=== PATIENT | male | born 1985 | race Caucasian/White ===

== ENCOUNTER 2016-12-01 22:42 | Emergency (ER) | payer SELFPAY ==
[2016-12-02 02:00] LABS: BASOPHIL# 0.1 X10e3 (0-0.3); EOSINOPHIL# 0.1 X10e3 (0-0.7); EOSINOPHIL% 2.3 % (0.0-7.0); HEMATOCRIT 45.5 % (38.0-50.0); HEMOGLOBIN 15.4 gm/dL (13.0-16.0); LYMPHOCYTE# 2.1 X10e3 (1.0-3.5); LYMPHOCYTE% 40.3 % (17.0-45.0); MEAN CELL VOLUME 92.7 FL (83-96); MEAN CORPUSCULAR HEMOGLOBIN 31.3 PG (28-34); MEAN CORPUSCULAR HGB CONC 33.8 g/dL (30-36); MEAN PLATELET VOLUME 7.7 FL (6.5-11.5); MONOCYTE# 0.9 X10e3 (0-1.0); MONOCYTE% 17.6 % (3.0-12.0); NEUTROPHIL% 38.8 % (40-75); PLATELET COUNT 138 X10e3 (140-420); RED BLOOD COUNT 4.91 X10e (3.90-5.60); RED CELL DISTRIBUTION WIDTH 13.2 % (11.0-15.5); WHITE BLOOD COUNT 5.3 X10e3 (4.0-10.5)
[2016-12-02 02:02] LABS: DIFF IND NO
[2016-12-02 02:05] LABS: AMPHETAMINE NEG (NEG); BARBITURATES NEG (NEG); BENZODIAZEPINES POS (NEG); COCAINE NEG (NEG); MARIJUANA NEG (NEG); OPIATES NEG (NEG); TRICYCLIC ANTIDEPRESSANTS NEG (NEG); U METHADONE NEG (NEG)
[2016-12-02 02:10] LABS: BUN/CREATININE RATIO 11.25; CALCIUM SERUM 8.9 mg/dL (8.4-10.2); CREATININE SERUM 0.8 mg/dL (0.6-1.4); GLOM FILT RATE Estimated 118.2 mL/min (>60); POTASSIUM 3.4 mmol/L (3.5-5.1)
== END 2016-12-02 05:30 | disposition home or self-care (01) ==
LOC: CED 22:42
PROVIDERS: Emergency Medicine
DX: F10.129 Alcohol abuse with intoxication, unspecified (principal)
CPT/HCPCS: 36415; 80048; 80307; 85025; 96360; 99284; G0480

== ENCOUNTER 2016-12-04 01:49 | Emergency (ER) | payer OTHER ==
--- NOTE | ~2016-12-04 | EKG ---
PATIENT: BRETT CALDERON UNIT #: [id number] Ventricular Rate: 93 BPM Atrial Rate: 93 BPM P-R Interval: 162 ms QRS Duration: 108 ms Q-T Interval: 402 ms QTC Calculation(Bezet): 499 ms P [place]: 58 degrees Calculated R [place]: -10 degrees Calculated T [place]: 16 degrees Diagnosis Line: Normal sinus rhythm Diagnosis Line: Left ventricular hypertrophy Diagnosis Line: Nonspecific T wave abnormality Diagnosis Line: Prolonged QT Diagnosis Line: Abnormal ECG Diagnosis Line: No previous ECGs available Diagnosis Line: Confirmed by BRENT DE GUZMAN MD ([id number]) on 12/05/2016 Diagnosis Line: 5:58:16 PM INTERPRETING MD: GAB ESPOSITO
== END 2016-12-04 04:29 | disposition home or self-care (01) ==
LOC: CED 01:49
DX: F19.10 Other psychoactive substance abuse, uncomplicated (principal)
CPT/HCPCS: 93005; 99282; 99283